=== PATIENT | male | born 1945 | race Caucasian/White ===

== ENCOUNTER 2023-02-14 05:31 | Day surgery (SDC) | payer OTHER, MEDICARE ==
[2023-02-13 12:55] LABS: ALBUMIN 3.5 G/DL (3.4-5.0); ANION GAP 7 (8-16); BLOOD UREA NITROGEN 25 MG/DL (7-18); BUN/CREATININE RATIO 16.7 (10.0-20.0); CHLORIDE 104 MMOL/L (99-107); GLUCOSE 215 MG/DL (70-104); POTASSIUM 4.5 MMOL/L (3.5-5.1); SODIUM 140 MMOL/L (135-145); TOTAL CARBON DIOXIDE 29.2 MMOL/L (24-32); eGFR 46 ML/MIN
[2023-02-13 13:06] LABS: BASOPHILS % (AUTO) 0.3 % (0-1); EOSINOPHILS # (AUTO) 0.2 X10'3 (0-0.9); EOSINOPHILS % (AUTO) 2.9 % (0-6); HEMATOCRIT 49.6 % (42.0-52.0); HEMOGLOBIN 16.7 g/dl (14.0-17.9); LYMPHOCYTES # (AUTO) 2.8 X10'3 (1.1-4.8); LYMPHOCYTES % (AUTO) 37.8 % (21-51); MEAN CORPUSCULAR HEMOGLOBIN 31.7 PG (27.0-31.0); MEAN CORPUSCULAR HGB CONC 33.7 g/dL (33.0-36.5); MEAN CORPUSCULAR VOLUME 94.2 FL (78-98); MEAN PLATELET VOLUME 8.2 FL (7.4-10.4); MONOCYTES # (AUTO) 0.7 X10'3 (0-0.9); MONOCYTES % (AUTO) 9.5 % (2-12); NEUTROPHILS # (AUTO) 3.6 X10'3 (1.8-7.7); NEUTROPHILS % (AUTO) 49.5 % (42-75); PLATELET COUNT 144 X10'3 (140-440); RED BLOOD COUNT 5.26 X10'6 (4.70-6.10); RED CELL DISTRIBUTION WIDTH 14.3 % (11.5-14.5); WHITE BLOOD COUNT 7.3 X10'3 (4.5-11.0)
[~2023-02-14] VITALS: Ht 175.3 cm; Wt 108.8 kg
[~2023-02-14 05:31] MED LIST: ALBU8HFA PO; CLOP75TA33 PO; GEMF600T89 PO; ISOS30TA84 PO; LOP25T PO; MAGN250T11 PO; MULT-620 PO; NITR0.4T51 SL; NOVLG SQ; OMEG-8 PO; PANT-47 PO; SPIR25TA5 PO; UBID100C16 PO; ZINC50TA60 PO
--- NOTE | 2023-02-14 06:30 | NUR ---
Phoned Dr. Amato due to pt taking both Plavix and Eliquis yesterday AM. Dr. Amato cancelled procedure.
[2023-02-14] MEDS ORDERED: ALIR75PE5 (06:35)
[2023-02-14] MEDS ORDERED: APIX5TAB3 PO (06:36)
[2023-02-14] MEDS ORDERED: CHOL50004 PO (06:37)
[2023-02-14] MEDS ORDERED: SACU1TAB4 PO ×2 (06:39→06:45)
[2023-02-14] MEDS ORDERED: FAMO20TA8 PO (06:39)
[2023-02-14] MEDS ORDERED: METO-477 PO (06:42)
[2023-02-14] MEDS ORDERED: METO-467 PO (06:43)
[2023-02-14] MEDS ORDERED: EMPA1TAB15 PO (06:49)
[2023-02-14] MEDS ORDERED: normal saline 1000ml 1,000 ML IV SCH (07:00)
[2023-02-14] MEDS ORDERED: cefazolin 2gm/D5W 100mL 100 ML IV ONE (07:00)
== END 2023-02-14 06:45 | disposition home or self-care (01) ==
LOC: SSTAY O 05:31
PROVIDERS: ATTEND Internal Medicine Cardiovascular Disease
DX: Z45.02 Encounter for adjustment and management of automatic implantable cardiac defibrillator (principal); Z53.8 Procedure and treatment not carried out for other reasons; I42.9 Cardiomyopathy, unspecified; I11.0 Hypertensive heart disease with heart failure; I50.9 Heart failure, unspecified; E11.59 Type 2 diabetes mellitus with other circulatory complications; E66.9 Obesity, unspecified; Z68.35 Body mass index [BMI] 35.0-35.9, adult; G47.39 Other sleep apnea; Z87.891 Personal history of nicotine dependence; Z79.899 Other long term (current) drug therapy; Z95.5 Presence of coronary angioplasty implant and graft; Z95.1 Presence of aortocoronary bypass graft; Z91.041 Radiographic dye allergy status; Z88.8 Allergy status to other drugs, medicaments and biological substances; Z91.09 Other allergy status, other than to drugs and biological substances; Z82.49 Family history of ischemic heart disease and other diseases of the circulatory system
CPT/HCPCS: 36415; 80048; 85025; 93005; J7030

== ENCOUNTER 2023-02-22 08:58 | Day surgery (SDC) | payer OTHER ==
[2023-02-21 11:34] LABS: ALBUMIN 3.7 G/DL (3.4-5.0); ANION GAP 10 (8-16); BLOOD UREA NITROGEN 26 MG/DL (7-18); BUN/CREATININE RATIO 19.4 (10.0-20.0); CALCIUM 9.4 MG/DL (8.5-10.1); CHLORIDE 103 MMOL/L (99-107); CREATININE 1.34 MG/DL (0.60-1.10); GLUCOSE 225 MG/DL (70-104); POTASSIUM 4.7 MMOL/L (3.5-5.1); SODIUM 141 MMOL/L (135-145); TOTAL CARBON DIOXIDE 27.8 MMOL/L (24-32); eGFR 52 ML/MIN
[2023-02-21 11:35] LABS: BASOPHILS # (AUTO) 0.1 X10'3 (0-0.2); BASOPHILS % (AUTO) 0.8 % (0-1); EOSINOPHILS # (AUTO) 0.1 X10'3 (0-0.9); HEMATOCRIT 51.6 % (42.0-52.0); HEMOGLOBIN 17.3 g/dl (14.0-17.9); LYMPHOCYTES # (AUTO) 2.8 X10'3 (1.1-4.8); LYMPHOCYTES % (AUTO) 39.2 % (21-51); MEAN CORPUSCULAR HEMOGLOBIN 31.6 PG (27.0-31.0); MEAN CORPUSCULAR HGB CONC 33.6 g/dL (33.0-36.5); MEAN CORPUSCULAR VOLUME 94.1 FL (78-98); MEAN PLATELET VOLUME 7.7 FL (7.4-10.4); MONOCYTES # (AUTO) 0.7 X10'3 (0-0.9); MONOCYTES % (AUTO) 9.4 % (2-12); NEUTROPHILS # (AUTO) 3.4 X10'3 (1.8-7.7); NEUTROPHILS % (AUTO) 48.6 % (42-75); PLATELET COUNT 149 X10'3 (140-440); RED BLOOD COUNT 5.48 X10'6 (4.70-6.10); RED CELL DISTRIBUTION WIDTH 14.6 % (11.5-14.5); WHITE BLOOD COUNT 7.1 X10'3 (4.5-11.0)
[2023-02-21 11:39] LABS: APTT 28 SECONDS (22-32)
[2023-02-22] VITALS (10 sets, daily range): BP systolic 96–123; BP diastolic 57–76; PULSE 73–85; RESP 16; TEMP 97.7; O2SAT 93–95
[~2023-02-22] VITALS: Ht 175.3 cm; Wt 108.8 kg
[~2023-02-22 08:58] MED LIST changes: -ALBU8HFA PO; +ALIR75PE5; +APIX5TAB3 PO; +CHOL50004 PO; +EMPA1TAB15 PO; +FAMO20TA8 PO; -GEMF600T89 PO; -LOP25T PO; -MAGN250T11 PO; +METO-467 PO; +METO-477 PO; -NITR0.4T51 SL; -NOVLG SQ; -PANT-47 PO; +SACU1TAB4 PO
[2023-02-22] MEDS ORDERED: cefazolin 2gm/D5W 100mL 100 ML IV ONE (09:22)
[2023-02-22] MEDS ORDERED: clindamycin-Cleocin 900mg/D5W 50 ML IV ONE ×2 (09:23→12:10)
[2023-02-22] MEDS ORDERED: normal saline 1000ml 1,000 ML IV SCH (09:25)
[2023-02-22] MEDS ORDERED: midazolam 1 mg/ML 2ml injection ONE (11:55)
[2023-02-22] MEDS ORDERED: ceFAZolin 1000mg inj ONE (11:55)
[2023-02-22] MEDS ORDERED: LIDOcaine 1% W/epiNEPHrine 1:100,000 20ml vial ONE (11:55)
[2023-02-22] MEDS ORDERED: fentaNYL/PF 50MCG/1 ML 2ML syringe ONE (11:55)
[2023-02-22] MEDS ORDERED: HYDROcodone/acetaminophen 10/325mg tab PO PRN (14:05)
[2023-02-22] MEDS ORDERED: HYDROcodone/acetaminophen 5mg/325mg tablet PO PRN (14:05)
== END 2023-02-22 17:30 | disposition home or self-care (01) ==
LOC: SSTAY O 08:58
PROVIDERS: ATTEND Internal Medicine Cardiovascular Disease
DX: Z45.02 Encounter for adjustment and management of automatic implantable cardiac defibrillator (principal); I10 Essential (primary) hypertension; E11.9 Type 2 diabetes mellitus without complications; E78.5 Hyperlipidemia, unspecified; I42.9 Cardiomyopathy, unspecified; I25.10 Atherosclerotic heart disease of native coronary artery without angina pectoris; I48.91 Unspecified atrial fibrillation; Z79.01 Long term (current) use of anticoagulants; Z79.899 Other long term (current) drug therapy
CPT/HCPCS: 33263; 36415; 80048; 82948; 85025; 85610; 85730; 93005; 99152; 99153; C1721; J0690; J2250; J3010; J3490; J7030; A6449